=== PATIENT | female | born 1995 | race Caucasian/White ===

== ENCOUNTER 2019-05-22 07:24 | Inpatient (IN) | payer OTHER ==
[2019-05-22] MEDS ORDERED: IBUPROFEN 600 MG TAB PO (08:30)
[2019-05-22] MEDS ORDERED: METHYLERGONOVINE 0.2 MG INJ IM (08:30)
[2019-05-22] MEDS ORDERED: OXYTOCIN 30 UNITS/LR 500 ML IV ×2 (08:30)
[2019-05-22] MEDS ORDERED: MISOPROSTOL 200 MCG TAB PR (08:30)
[2019-05-22] MEDS ORDERED: LIDOCAINE 1% (MPF) 30 ML INJ INJ (08:30)
[2019-05-22] MEDS ORDERED: CARBOPROST 250 MCG INJ IM (08:30)
[2019-05-22 09:38] LABS: RUPTURE FETAL MEMBRANES POSITIVE (NEGATIVE)
[2019-05-22] MEDS: LACTATED RINGER'S 1,000 ML IV ×3 (10:19→18:14)
[2019-05-22] MEDS: AMPICILLIN 2 GM/NS (PMX) 100 ML IV (10:40)
[2019-05-22] MEDS: OXYTOCIN 30 UNITS/LR 500 ML IV ×2 (10:59→23:17)
[2019-05-22 11:17] LABS: ADD MAN DIFF? NO
[2019-05-22 11:30] LABS: WHITE BLOOD COUNT 10.3 10^3/ul (4.8-10.8)
[2019-05-22 11:30] LABS: BASOPHIL # 0.1 10^3/ul (0.0-0.1); BASOPHILS % 0.6 % (0.0-2.0); EOSINOPHILS # 0.2 10^3/ul (0.0-0.5); HEMATOCRIT 35.4 % (37.0-47.0); HEMOGLOBIN 11.6 g/dl (12.0-16.0); LYMPHOCYTES # 1.7 10^3/ul (0.8-2.9); MEAN CORPUSCULAR HEMOGLOBIN 31.5 pg (29.0-33.0); MEAN CORPUSCULAR HGB CONC 32.8 g/dl (32.0-37.0); MEAN CORPUSCULAR VOLUME 96.2 fl (82.0-101.0); MEAN PLATELET VOLUME 12.4 fl (7.4-10.4); MONOCYTE # 0.8 10^3/ul (0.3-0.9); MONOCYTES % 8.1 % (0.0-11.0); NEUTROPHIL # 7.5 10^3/ul (1.6-7.5); NEUTROPHILS % 72.2 % (39.0-77.0); PLATELET COUNT 169 10^3/UL (140-415); RED BLOOD COUNT 3.68 10^6/ul (4.20-5.40); RED CELL DISTRIBUTION WIDTH 13.6 % (11.5-14.5)
[2019-05-22 11:42] LABS: INR 0.89; PROTIME 12.1 Sec (11.9-14.9); PT RATIO 0.9
[2019-05-22 11:43] LABS: PARTIAL THROMBOPLASTIN TIME 25.4 Sec (23.0-35.0)
[2019-05-22 12:08] LABS: HEPATITIS B SURFACE ANTIGEN NEGATIVE (NEGATIVE)
[2019-05-22] MEDS: BUTORPHANOL 2 MG INJ IV (13:57)
[2019-05-22] MEDS: AMPICILLIN 1 GM/NS (PMX) 50 ML IV ×3 (14:37→23:15)
[2019-05-22 14:57] LABS: RAPID PLASMA REAGIN NONREACTIVE (NR)
[2019-05-22 16:05] LABS: AMPHETAMINE/METHAMPHETAMINE NEGATIVE (NEGATIVE); BARBITURATES NEGATIVE (NEGATIVE); BENZODIAZEPINES NEGATIVE (NEGATIVE); CANNABINOIDS POSITIVE (NEGATIVE); COCAINE NEGATIVE (NEGATIVE); OPIATES NEGATIVE (NEGATIVE)
[2019-05-22] MEDS ORDERED: FENTAnyl 2MCG/ML-ROPIV 0.2% 100 ML (17:56)
[2019-05-22] MEDS ORDERED: FENTAnyl 2MCG/ML-ROPIV 0.2% 100 ML BAG EPI (18:30)
[2019-05-22] MEDS ORDERED: NALOXONE (0.4 MG/ML) INJ IV (18:30)
[2019-05-22] MEDS ORDERED: MINERAL OIL LIGHT 10 ML VIAL (22:38)
[2019-05-22] MEDS: MINERAL OIL LIGHT 10 ML VIAL TOP (23:15)
[2019-05-23] MEDS ORDERED: MISOPROSTOL 200 MCG TAB PR (02:00)
[2019-05-23] MEDS ORDERED: CARBOPROST 250 MCG INJ IM (02:00)
[2019-05-23] MEDS ORDERED: OXYCODONE/ASPIRIN (4.88/325) TAB PO ×2 (02:00)
[2019-05-23] MEDS ORDERED: METHYLERGONOVINE 0.2 MG INJ IM (02:00)
[2019-05-23] MEDS ORDERED: ZOLPIDEM 5 MG TAB PO (02:00)
[2019-05-23] MEDS: WITCH HAZEL/GLYCERIN PAD PR ×2 (02:29→18:51)
[2019-05-23] MEDS: LANOLIN HPA 1 PKT TOP ×2 (02:30→20:26)
[2019-05-23] MEDS: BENZOCAINE 20% 56 ML SPRAY TOP (02:30)
[2019-05-23] MEDS: OXYTOCIN 30 UNITS/LR 500 ML IV (03:29)
[2019-05-23] MEDS: IBUPROFEN 600 MG TAB PO ×4 (05:39→23:56)
[2019-05-23 08:25] LABS: ADD MAN DIFF? NO
[2019-05-23 08:31] LABS: BASOPHIL # 0.1 10^3/ul (0.0-0.1); BASOPHILS % 0.5 % (0.0-2.0); EOSINOPHILS # 0.1 10^3/ul (0.0-0.5); EOSINOPHILS % 0.8 % (0.0-7.0); HEMATOCRIT 40.5 % (37.0-47.0); HEMOGLOBIN 12.8 g/dl (12.0-16.0); LYMPHOCYTES # 1.7 10^3/ul (0.8-2.9); LYMPHOCYTES % 11.5 % (15.0-51.0); MEAN CORPUSCULAR HEMOGLOBIN 30.8 pg (29.0-33.0); MEAN CORPUSCULAR HGB CONC 31.6 g/dl (32.0-37.0); MEAN CORPUSCULAR VOLUME 97.4 fl (82.0-101.0); MEAN PLATELET VOLUME 12.3 fl (7.4-10.4); MONOCYTE # 1.3 10^3/ul (0.3-0.9); MONOCYTES % 8.9 % (0.0-11.0); NEUTROPHIL # 11.3 10^3/ul (1.6-7.5); NEUTROPHILS % 77.7 % (39.0-77.0); PLATELET COUNT 162 10^3/UL (140-415); RED BLOOD COUNT 4.16 10^6/ul (4.20-5.40); RED CELL DISTRIBUTION WIDTH 13.9 % (11.5-14.5)
[2019-05-23 08:31] LABS: WHITE BLOOD COUNT 14.6 10^3/ul (4.8-10.8)
[2019-05-23] MEDS: SENNA/DOCUSATE NA (8.6MG/50MG) TAB PO ×2 (11:33→20:26)
[2019-05-24] MEDS: IBUPROFEN 600 MG TAB PO ×3 (05:27→18:00)
[2019-05-24] MEDS: SENNA/DOCUSATE NA (8.6MG/50MG) TAB PO (11:31)
[2019-05-24] MEDS: DIPHTH/TET/ACEL PERTUSS (ADULT) 0.5 ML VIAL IM* ×2 (11:40→11:45)
[2019-05-24 13:17] LABS: RUBELLA ANTIBODY - IGM <20.00 AU/mL
[2019-05-24 16:26] LABS: RUBELLA ANTIBODY - IGG <0.90 index
== END 2019-05-24 19:20 | disposition home or self-care (01) | DRG 807 ==
LOC: OBT 07:24 → PP1 05-23 01:45 → L-D 07:24 → OBT 08:15 → L-D 08:15
PROVIDERS: Obstetrics & Gynecology
PROC: 10E0XZZ Delivery of Products of Conception, External Approach (ICD-10-PCS; principal; 2019-05-22)
DX: O80 Encounter for full-term uncomplicated delivery (principal); Z37.0 Single live birth; Z3A.39 39 weeks gestation of pregnancy
CPT/HCPCS: 62322; 76818; 80307; 84112; 85025; 85610; 85730; 86592; 86762; 86850; 86900; 86901; 87340